=== PATIENT | female | born 1990 | race Caucasian/White ===

== ENCOUNTER → 2016-11-01 | Outpatient (CLI) | payer OTHER ==
[2016-11-01 10:56] LABS: CHOLESTEROL/HDL RATIO 2.6
== END | disposition home or self-care (01) ==
LOC: LAB 10:09
PROVIDERS: ATTEND Family Medicine
DX: Z00.00 Encounter for general adult medical examination without abnormal findings (principal); E28.2 Polycystic ovarian syndrome
CPT/HCPCS: 36415; 80061; 83036

== ENCOUNTER → 2017-02-13 | Outpatient (CLI) | payer OTHER ==
[2017-02-13 12:45] LABS: BASO % 1 % (0-3); EOS % 1 % (0-3); HEMATOCRIT 37.9 % (36.0-47.0); HEMOGLOBIN 12.7 g/dL (12.0-15.5); LYMPH # 2.5 x10^3/uL (1.0-4.8); LYMPH % 29 % (24-48); MEAN CORPUSCULAR HEMOGLOBIN 30 pg (25-35); MEAN CORPUSCULAR HGB CONC 34 g/dL (31-37); MEAN CORPUSCULAR VOLUME 89 fL (79-100); MONO % 6 % (0-9); NEUT % 63 % (31-73); PLATELET COUNT 300 x10^3/uL (140-400); RED BLOOD COUNT 4.28 x10^6/uL (3.50-5.40); RED CELL DISTRIBUTION WIDTH 14.1 % (11.5-14.5); WHITE BLOOD COUNT 8.5 x10^3/uL (4.0-11.0)
[2017-02-13 12:59] LABS: % SAT IRON 9 % (15-34); IRON,SERUM 47 ug/dL (50-170)
[2017-02-13 13:00] LABS: CALCIUM 9.2 mg/dL (8.5-10.1); CREATININE 0.9 mg/dL (0.6-1.0); GFR 74.6; POTASSIUM 4.1 mmol/L (3.5-5.1)
[2017-02-13 18:13] LABS: TRANSFERRIN 418 mg/dL (200-370)
[2017-02-13 19:16] LABS: TESTOSTERONE TOTAL <3 ng/dL (8-48)
== END | disposition home or self-care (01) ==
LOC: LAB 12:15
PROVIDERS: ATTEND Internal Medicine Endocrinology, Diabetes & Metabolism
DX: E28.2 Polycystic ovarian syndrome (principal); L68.0 Hirsutism
CPT/HCPCS: 36415; 80048; 82728; 83540; 83550; 84403; 84466; 85027

== ENCOUNTER → 2017-03-07 | Outpatient (CLI) | payer OTHER ==
[2017-03-07 13:00] LABS: FREE T4 1.21 ng/dL (0.76-1.46)
== END | disposition home or self-care (01) ==
LOC: LAB 10:24
PROVIDERS: ATTEND Internal Medicine Endocrinology, Diabetes & Metabolism
DX: E28.2 Polycystic ovarian syndrome (principal); E55.9 Vitamin D deficiency, unspecified
CPT/HCPCS: 36415; 82306; 84439; 84443

== ENCOUNTER → 2017-10-30 | Outpatient (CLI) | payer OTHER ==
[2017-10-30 10:20] LABS: ADD MAN DIFF? NO
[2017-10-30 10:29] LABS: BASO # 0.1 x10^3/uL (0.0-0.2); BASO % 1 % (0-3); EOS # 0.1 x10^3/uL (0.0-0.7); EOS % 1 % (0-3); HEMATOCRIT 40.1 % (36.0-47.0); HEMOGLOBIN 12.9 g/dL (12.0-15.5); LYMPH # 2.6 x10^3/uL (1.0-4.8); LYMPH % 25 % (24-48); MEAN CORPUSCULAR HEMOGLOBIN 28 pg (25-35); MEAN CORPUSCULAR HGB CONC 32 g/dL (31-37); MEAN CORPUSCULAR VOLUME 87 fL (79-100); MONO # 0.8 x10^3/uL (0.0-1.1); MONO % 8 % (0-9); NEUT # 6.9 x10^3uL (1.8-7.7); NEUT % 65 % (31-73); PLATELET COUNT 271 x10^3/uL (140-400); RED BLOOD COUNT 4.63 x10^6/uL (3.50-5.40); RED CELL DISTRIBUTION WIDTH 14.3 % (11.5-14.5); WHITE BLOOD COUNT 10.6 x10^3/uL (4.0-11.0)
[2017-10-30 11:05] LABS: ALBUMIN 3.8 g/dL (3.4-5.0); ALBUMIN/GLOBULIN RATIO 0.9 (1.0-1.7); ALK PHOS 88 U/L (46-116); ALT (SGPT) 71 U/L (14-59); ANION GAP 10 (6-14); AST (SGOT) 37 U/L (15-37); BLOOD UREA NITROGEN 10 mg/dL (7-20); BUN/CREATININE RATIO 13 (6-20); CALCIUM 9.3 mg/dL (8.5-10.1); CARBON DIOXIDE 28 mmol/L (21-32); CHLORIDE 100 mmol/L (98-107); CHOLESTEROL 236 mg/dL (0-200); CREATININE 0.8 mg/dL (0.6-1.0); FERRITIN 29 ng/mL (8-252); GFR 84.8; GLUCOSE 91 mg/dL (70-99); HDLC 64 mg/dL (40-60); LDLC 143 mg/dL (0-100); NON-HDL CHOLESTEROL 172 mg/dL (0-129); POTASSIUM 4.6 mmol/L (3.5-5.1); SODIUM 138 mmol/L (136-145); TOTAL BILIRUBIN 0.4 mg/dL (0.2-1.0); TOTAL PROTEIN 7.9 g/dL (6.4-8.2); TRIGLYCERIDES 146 mg/dL (0-150); VLDLC 29 mg/dL (0-40)
[2017-10-30 11:06] LABS: CHOLESTEROL/HDL RATIO 3.7
[2017-10-30 18:12] LABS: HEMOGLOBIN A1C 5.1 % (4.8-5.6)
== END | disposition home or self-care (01) ==
LOC: LAB 10:09
DX: Z00.01 Encounter for general adult medical examination with abnormal findings (principal); E28.2 Polycystic ovarian syndrome; F33.1 Major depressive disorder, recurrent, moderate; D50.9 Iron deficiency anemia, unspecified; Z87.828 Personal history of other (healed) physical injury and trauma
CPT/HCPCS: 36415; 80053; 80061; 82306; 82728; 83036; 84443; 85025

== ENCOUNTER → 2017-12-08 | Outpatient (CLI) | payer OTHER ==
[2017-12-08 08:32] LABS: GLUCOSE 95 mg/dL (70-99)
[2017-12-08 21:14] LABS: FSH 5.9 mIU/mL (.); LUTEINIZING HORMONE 12.3 mIU/mL (.)
[2017-12-09 09:21] LABS: INSULIN LEVEL 14.6 uIU/mL (2.6-24.9)
[2017-12-12 10:24] LABS: % FREE TESTOSTERONE 2.97 % (0.50-2.80); TESTOSTERONE TOTAL 10 ng/dL (8-48)
== END | disposition home or self-care (01) ==
LOC: LAB 08:08
DX: E28.2 Polycystic ovarian syndrome (principal)
CPT/HCPCS: 36415; 82627; 82947; 83001; 83002; 83525; 84402; 84403

== ENCOUNTER → 2018-09-04 | Outpatient (CLI) | payer OTHER ==
[2018-09-04 08:45] LABS: BASO # 0.1 x10^3/uL (0.0-0.2); BASO % 1 % (0-3); EOS # 0.3 x10^3/uL (0.0-0.7); EOS % 4 % (0-3); HEMATOCRIT 38.2 % (36.0-47.0); HEMOGLOBIN 12.5 g/dL (12.0-15.5); LYMPH # 2.5 x10^3/uL (1.0-4.8); LYMPH % 30 % (24-48); MEAN CORPUSCULAR HEMOGLOBIN 29 pg (25-35); MEAN CORPUSCULAR HGB CONC 33 g/dL (31-37); MEAN CORPUSCULAR VOLUME 87 fL (79-100); MONO # 0.6 x10^3/uL (0.0-1.1); MONO % 7 % (0-9); NEUT % 59 % (31-73); PLATELET COUNT 274 x10^3/uL (140-400); RED BLOOD COUNT 4.39 x10^6/uL (3.50-5.40); WHITE BLOOD COUNT 8.4 x10^3/uL (4.0-11.0)
[2018-09-04 09:21] LABS: CALCIUM 9.2 mg/dL (8.5-10.1); CREATININE 0.8 mg/dL (0.6-1.0); GFR 84.2; TOTAL BILIRUBIN 0.2 mg/dL (0.2-1.0); TOTAL PROTEIN 8.1 g/dL (6.4-8.2)
[2018-09-04 19:14] LABS: FSH 5.2 mIU/mL (.); HEMOGLOBIN A1C 5.4 % (4.8-5.6); LUTEINIZING HORMONE 4.4 mIU/mL (.)
[2018-09-06 08:11] LABS: INSULIN LEVEL 9.5 uIU/mL (2.6-24.9)
== END | disposition home or self-care (01) ==
LOC: LAB 08:02
PROVIDERS: ATTEND Obstetrics & Gynecology
DX: E28.2 Polycystic ovarian syndrome (principal)
CPT/HCPCS: 36415; 80053; 82306; 82627; 82652; 83001; 83002; 83036; 83525; 84402; 84403; 84443; 85025

== ENCOUNTER → 2018-12-25 | Outpatient (CLI) | payer OTHER ==
[2018-12-25 15:32] LABS: BASO % 1 % (0-3); EOS # 0.2 x10^3/uL (0.0-0.7); EOS % 2 % (0-3); HEMOGLOBIN 12.2 g/dL (12.0-15.5); LYMPH # 2.8 x10^3/uL (1.0-4.8); LYMPH % 27 % (24-48); MEAN CORPUSCULAR HEMOGLOBIN 28 pg (25-35); MEAN CORPUSCULAR HGB CONC 32 g/dL (31-37); MEAN CORPUSCULAR VOLUME 87 fL (79-100); MONO # 0.8 x10^3/uL (0.0-1.1); MONO % 8 % (0-9); NEUT # 6.4 x10^3uL (1.8-7.7); NEUT % 62 % (31-73); PLATELET COUNT 290 x10^3/uL (140-400); RED BLOOD COUNT 4.35 x10^6/uL (3.50-5.40); RED CELL DISTRIBUTION WIDTH 15.4 % (11.5-14.5); WHITE BLOOD COUNT 10.3 x10^3/uL (4.0-11.0)
[2018-12-25 15:52] LABS: ALBUMIN 3.8 g/dL (3.4-5.0); CALCIUM 9.3 mg/dL (8.5-10.1); CREATININE 0.8 mg/dL (0.6-1.0); GFR 84.2; POTASSIUM 4.5 mmol/L (3.5-5.1); TOTAL BILIRUBIN 0.3 mg/dL (0.2-1.0); TOTAL PROTEIN 7.7 g/dL (6.4-8.2)
[2018-12-25 16:08] LABS: CHOLESTEROL/HDL RATIO 3.4
== END | disposition home or self-care (01) ==
LOC: LAB 14:17
PROVIDERS: ATTEND Family Medicine
DX: Z00.00 Encounter for general adult medical examination without abnormal findings (principal); E55.9 Vitamin D deficiency, unspecified
CPT/HCPCS: 36415; 80053; 80061; 82652; 84443; 85025

== ENCOUNTER → 2019-03-10 | Outpatient (CLI) | payer OTHER ==
[~2019-03-10] MED LIST: 0.9 % SODIUM CHLORIDE 10 ML DISP.SYRIN. ID ONE; GADOBUTROL 10 MMOL/10 ML VIAL INT ART ONE; IOHEXOL 300 MG/ML 50 ML VIAL. INT ART ONE; LIDOCAINE 1% Multi-Dose 20 ML VIAL. ID ONE
--- NOTE | 2019-03-10 12:32 | KCIC ---
MR arthrogram left wrist dated 03/10/2019. Comparison made to digital subtraction arthrogram dated same day. Comparison made to MRI dated 12/02/2016. CLINICAL INDICATION: Left wrist pain. History of prior surgery in 2017. History of prior TFC tear. TECHNIQUE: Routine MR arthrogram left wrist performed following the intra-articular injection of dilute gadolinium. Injection portion the study will be reported separately. FINDINGS: Contrast material fills the radiocarpal space and distal radial ulnar joint. There is a linear band of increased T2 signal and contrast extension into the central portion of the TFCC near its radial attachment. This is similar in configuration to the prior exam, however there appears now to be a thin band of tissue bridging the defect distally. The dorsal and volar radial ulnar attachments are intact. The foveal and styloid attachments are intact. The wrist arthrogram performed same day showed no clear evidence of communication. Irregular appearance of the scapholunate ligament complex, similar to prior study. The lunotriquetral ligament is intact. No communication of contrast material to the mid carpal space. Flexor and extensor tendons are intact. Small amount tendon sheath fluid dorsally, likely related to injection. No intra-articular loose body. Carpal tunnel and Guyon's canal intact. Bone marrow signal is homogeneous. No marrow edema. No periostitis or bone destruction. Alignment anatomic. IMPRESSION: 1. Thin linear incomplete defect at the central TFC complex near of the radial side is less apparent on today's exam and shows no evidence of communication on the accompanying digital subtraction arthrogram. This could represent residua of prior tear or postsurgical defect. A recurrent partial thickness tear is not excluded. 2. Irregular appearance of the scapholunate ligament is unchanged from prior study and likely related to normal variant or prior tear. No evidence of contrast leak to the mid carpal space. 3. Otherwise no significant bony or soft tissue abnormality. Electronically signed by: Brock Lopez MD (03/10/2019 12:28 PM) [email or web address]
--- NOTE | 2019-03-10 12:50 | KCIC ---
2 compartment wrist arthrogram with digital subtraction fluoroscopy dated 03/10/2019. No comparison available. Clinical data indication: Wrist pain. History of prior TFC tear. TECHNIQUE: Potential benefits and risks of the procedure were discussed with the patient and informed consent was obtained. The dorsum of the left wrist was prepped and draped in a sterile fashion. After local anesthesia, approximately 4 cc of solution containing 5 cc Omnipaque 300, 5 cc lidocaine and 10 cc saline and 0.1 cc Gadavist was injected in the radial carpal space and digital subtraction fluoroscopy was performed. The needle was removed and hemostasis was obtained the fracture site. Subsequently, similar injection was performed at the distal radial ulnar joint using approximately 2 cc of contrast mixture. Following the second injection, the skin was cleansed and a dry sterile dressing was applied. Patient tolerated the procedure well. There are no immediate palpitations. The patient was then sent to the MR suite for further imaging. 83 seconds fluoroscopic time used. 3 images. FINDINGS: Images show contrast material filling the radiocarpal space and distal radial ulnar joint. No communication the on the TFC complex or extension into the midcarpal space. IMPRESSION: 2 compartment wrist arthrogram as described above. Please see MRI report dated same day for further information. Electronically signed by: Brock Lopez MD (03/10/2019 12:47 PM) [email or web address]
== END | disposition home or self-care (01) ==
LOC: KCIC 10:28
PROVIDERS: ATTEND Physical Medicine & Rehabilitation Sports Medicine
DX: M25.532 Pain in left wrist (principal)
CPT/HCPCS: 73115; 73222; A9585; Q9967

== ENCOUNTER → 2019-12-15 | Outpatient (CLI) | payer OTHER ==
[2019-12-15 12:28] LABS: BASO # 0.1 x10^3/uL (0.0-0.2); BASO % 1 % (0-3); EOS # 0.1 x10^3/uL (0.0-0.7); EOS % 2 % (0-3); HEMATOCRIT 40.1 % (36.0-47.0); HEMOGLOBIN 13.2 g/dL (12.0-15.5); LYMPH # 2.3 x10^3/uL (1.0-4.8); LYMPH % 33 % (24-48); MEAN CORPUSCULAR HEMOGLOBIN 27 pg (25-35); MEAN CORPUSCULAR HGB CONC 33 g/dL (31-37); MEAN CORPUSCULAR VOLUME 83 fL (79-100); MONO # 0.5 x10^3/uL (0.0-1.1); MONO % 7 % (0-9); NEUT % 58 % (31-73); PLATELET COUNT 296 x10^3/uL (140-400); RED BLOOD COUNT 4.81 x10^6/uL (3.50-5.40); RED CELL DISTRIBUTION WIDTH 16.2 % (11.5-14.5)
[2019-12-15 12:30] LABS: BILIRUBIN,URINE NEGATIVE (NEG); CLARITY,URINE CLEAR; COLOR,URINE YELLOW; NITRITE,URINE NEGATIVE (NEG); PH,URINE 5.5; PROTEIN,URINE NEGATIVE (NEG-TRACE); UROBILINOGEN,URINE 0.2 mg/dL (0.2 mg/dL)
[2019-12-15 12:38] LABS: BACTERIA,URINE MODERATE /HPF (0-FEW); RBC,URINE 0 /HPF (0-2); SQUAMOUS EPITHELIAL CELL,UR MANY /LPF
[2019-12-15 12:47] LABS: CALCIUM 9.4 mg/dL (8.5-10.1); CREATININE 0.8 mg/dL (0.6-1.0); GFR 83.7; POTASSIUM 4.1 mmol/L (3.5-5.1); TOTAL BILIRUBIN 0.2 mg/dL (0.2-1.0)
[2019-12-15 12:50] LABS: CHOLESTEROL/HDL RATIO 5.6
== END | disposition home or self-care (01) ==
LOC: LAB 11:48
PROVIDERS: ATTEND Family Medicine
DX: Z00.00 Encounter for general adult medical examination without abnormal findings (principal)
CPT/HCPCS: 36415; 80053; 80061; 81001; 84443; 85025; 87086